=== PATIENT | male | born 1965 | race Caucasian/White ===

== ENCOUNTER 2017-04-15 10:23 | Emergency (ER) | payer BC ==
[~2017-04-15] VITALS: Ht 175.3 cm; Wt 83.2 kg
[2017-04-15 10:27] VITALS: BP 156/100; PULSE 78; RESP 17; TEMP 97.3; O2SAT 100
[2017-04-15] MEDS ORDERED: LISI20TA PO (10:41)
[2017-04-15] MEDS ORDERED: MORPHINE SULFATE 2 MG/ML INJ IV PUSH ONE (11:00)
[2017-04-15] MEDS ORDERED: SODIUM CHLOR 0.9% 1000 ML INJ 1,000 ML IV ONE ×2 (11:00→12:00)
[2017-04-15] MEDS ORDERED: KETOROLAC TROMETHAMINE 30 MG/ML (IVP) VIAL IV PUSH ONE (11:00)
[2017-04-15] MEDS ORDERED: ONDANSETRON HCL 4 MG/2 ML VIAL IV PUSH ONE (11:00)
--- NOTE | 2017-04-15 11:01 | PD ---
HPI Chief Complaint: Flank/Kidney Pain Time Seen by Provider: 10:58 Travel History International Travel<30 days: No Contact w/Intl Traveler<30days: No Traveled to known affect area: No History of Present Illness HPI This is a 51-year-old male who presents to the emergency department with a history of kidney stones with onset of right-sided flank pain that started this morning, constant, severe that radiates into his right groin associated with multiple episodes of vomiting. He denies any fevers or chills. He is having difficulty urinating. He says this feels just like kidney stones he has had in the past. He says he has had 3 kidney stones since 2008. PFSH Past Medical History Cardiovascular Problems: Yes (HTN) Hypertension: Yes Past Surgical History Surgical History: No Previous Surgery Social History Alcohol Use: No Tobacco Use: No Substance Use: No Allergies-Medications (Allergen,Severity, Reaction): Coded Allergies: No Known Allergies (Unverified , 04/15/17) Reported Meds & Prescriptions Reported Meds & Active Scripts Active Reported Lisinopril-Hctz 20-12.5 Mg Tab 1 Tab PO DAILY Review of Systems Except as stated in HPI: all other systems reviewed are Neg Physical Exam Narrative GENERAL:Well appearing, no acute distress SKIN: Focused skin assessment warm and dry. HEAD: Atraumatic. Normocephalic. EYES: Pupils equal and round. No injection or drainage. ENT: Moist mucous membranes NECK: Trachea midline. CARDIOVASCULAR: Regular rate and rhythm. No murmur appreciated. RESPIRATORY: Clear to auscultation. Breath sounds equal bilaterally. GASTROINTESTINAL: Abdomen soft, tender to palpation in the right lower quadrant with no rebound or guarding. : Right CVA tenderness MUSCULOSKELETAL: No obvious deformities. NEUROLOGICAL: Awake and alert. No obvious cranial nerve deficits. Moving all extremities PSYCHIATRIC: Appropriate mood and affect; insight and judgment normal. Data Data Last Documented VS Vital Signs Date Time Temp Pulse Resp B/P (MAP) Pulse Ox O2 Delivery O2 Flow Rate FiO2 04/15/17 10:27 97.3 78 17 156/100 (118) 100 Orders Orders Complete Blood Count With Diff (04/15/17 10:58) Basic Metabolic Panel (Bmp) (04/15/17 10:58) Urinalysis - C+S If Indicated (04/15/17 10:58) Ketorolac Inj (Toradol Inj) (04/15/17 11:00) Morphine Inj (Morphine Inj) (04/15/17 11:00) Ondansetron Inj (Zofran Inj) (04/15/17 11:00) Sodium Chlor 0.9% 1000 Ml Inj (Ns 1000 M (04/15/17 11:00) Sodium Chlor 0.9% 1000 Ml Inj (Ns 1000 M (04/15/17 12:00) Labs Laboratory Tests Test 04/15/17 11:09 White Blood Count 12.5 TH/MM3 Red Blood Count 4.22 MIL/MM3 Hemoglobin 12.7 GM/DL Hematocrit 38.5 % Mean Corpuscular Volume 91.1 FL Mean Corpuscular Hemoglobin 30.1 PG Mean Corpuscular Hemoglobin Concent 33.0 % Red Cell Distribution Width 11.1 % Platelet Count 335 TH/MM3 Mean Platelet Volume 8.9 FL Neutrophils (%) (Auto) 89.8 % Lymphocytes (%) (Auto) 6.9 % Monocytes (%) (Auto) 3.0 % Eosinophils (%) (Auto) 0.1 % Basophils (%) (Auto) 0.2 % Neutrophils # (Auto) 11.2 TH/MM3 Lymphocytes # (Auto) 0.9 TH/MM3 Monocytes # (Auto) 0.4 TH/MM3 Eosinophils # (Auto) 0.0 TH/MM3 Basophils # (Auto) 0.0 TH/MM3 CBC Comment DIFF FINAL Differential Comment Urine Collection Type CLEAN CATCH Urine Color YELLOW Urine Turbidity CLEAR Urine pH 8.0 Urine Specific [place] 1.026 Urine Protein 30 mg/dL Urine Glucose (UA) NEG mg/dL Urine Ketones 15 mg/dL Urine Occult Blood LARGE Urine Nitrite NEG Urine Bilirubin NEG Urine Leukocyte Esterase NEG Urine RBC 50-99 /hpf Urine WBC 0-2 /hpf Urine Squamous Epithelial Cells 0-5 /hpf Microscopic Urinalysis Comment CULT NOT INDICATED Urine Collection Time 11:09 Blood Urea Nitrogen 21 MG/DL Creatinine 1.80 MG/DL Random Glucose 150 MG/DL Calcium Level 9.0 MG/DL Sodium Level 138 MEQ/L Potassium Level 3.5 MEQ/L Chloride Level 104 MEQ/L Carbon Dioxide Level 25.4 MEQ/L Anion Gap 9 MEQ/L Estimat Glomerular Filtration Rate 40 ML/MIN MDM Medical Decision Making Medical Screen Exam Complete: Yes Emergency Medical Condition: Yes Interpretation(s) afebrile, no tachycardia, hypertensive mild leukocytosis mild anemia renal insufficiency urinalysis: red blood cells with no evidence of infection. Differential Diagnosis Nephrolithiasis, pyelonephritis, urinary tract infection, dehydration Narrative Course This is a 51-year-old male who presents to the emergency department with signs and symptoms classic for kidney stone. He was placed on a monitor and an IV was established. Labs demonstrates a mild renal insufficiency as well as blood in his urine and some ketones. He was given 2 L of IV fluid. He was given pain control and he feels much better on reassessment. I asked him to have his blood work redrawn by his primary care physician in 1-2 weeks to ensure his kidney function is improving. Otherwise his pain is better controlled and I think is appropriate for outpatient therapy. I do not think CT imaging is warranted as he has had 3 stones that have been visualized in the past that have passed without intervention. Diagnosis Primary Impression: Nephrolithiasis Patient Instructions: General Instructions Additional Instructions: If you develop severe pain, inability to eat or drink, or fever return to the emergency department. Use a strainer to try to catch your stone. Take Lortab as needed for pain, and continue taking zofran as needed for nausea. Complete your course of tamsulosin. Your kidney function was slightly abnormal today. Be sure this is rechecked by your primary care physician in 1-2 weeks. Y Med/Other Pt SpecificInfo: Prescription(s) given Scripts Ondansetron Odt (Zofran Odt) 4 Mg Tab 4 MG SL Q6HR Y for Nausea/Vomiting, #12 TAB 0 Refills Prov: Melonie Car MD 04/15/17 Tamsulosin (Flomax) 0.4 Mg Cap 0.4 MG PO HS for Manage Prostate Problems for 5 Days, #5 CAP 0 Refills Prov: Melonie Car MD 04/15/17 Hydrocodone/Acetaminophen (Hydrocodone-Acetamin 5-325 mg) 5 Mg-325 Mg Tablet 1-2 TAB PO Q6HR Y for PAIN SCALE 5 TO 10, #12 Prov: Melonie Car MD 04/15/17 Disposition: 01 DISCHARGE HOME Condition: Stable Melonie Car MD Apr 15, 2017 11:01
[2017-04-15 11:17] LABS: AUTOMATED NEUTROPHIL # 11.2 TH/MM3 (1.8-7.7); BASOPHIL % 0.2 % (0.0-2.0); EOSINOPHIL % 0.1 % (0.0-4.0); HEMATOCRIT 38.5 % (39.0-51.0); HEMOGLOBIN 12.7 GM/DL (13.0-17.0); LYMPH % 6.9 % (9.0-44.0); LYMPHOCYTE # 0.9 TH/MM3 (1.0-4.8); MEAN CELL VOLUME 91.1 FL (80.0-100.0); MEAN CORPUSCULAR HEMOGLOBIN 30.1 PG (27.0-34.0); MEAN PLATELET VOLUME 8.9 FL (7.0-11.0); MONOCYTE # 0.4 TH/MM3 (0-0.9); NEUT % 89.8 % (16.0-70.0); PLATELET COUNT 335 TH/MM3 (150-450); RED BLOOD COUNT 4.22 MIL/MM3 (4.50-5.90); RED CELL DISTRIBUTION WIDTH 11.1 % (11.6-17.2); WHITE BLOOD COUNT 12.5 TH/MM3 (4.0-11.0)
[2017-04-15 11:18] LABS: BILIRUBIN, URINE NEG (NEG); BLOOD, URINE LARGE (NEG); GLUCOSE,URINE NEG (NEG); KETONE, URINE 15 mg/dL (NEG); NITRITE,URINE NEG (NEG); URINE LEUKOCYTE ESTERASE NEG (NEG)
[2017-04-15 11:24] LABS: URINE COLOR YELLOW (YELLW/STRAW); WBC, URINE 0-2 /hpf (0-5)
[2017-04-15 11:25] LABS: SQUAMOUS EPITHELIAL CELL URINE 0-5 /hpf (0-5)
[2017-04-15 11:28] LABS: BICARBONATE 25.4 MEQ/L (21.0-32.0)
[2017-04-15 11:31] LABS: CREATININE 1.8 MG/DL (0.60-1.30)
[2017-04-15] MEDS ORDERED: ZOFR4TAB3 SL (12:30)
[2017-04-15] MEDS ORDERED: TAMS5CAP PO (12:30)
[2017-04-15] MEDS ORDERED: HYDR-3516 PO (12:30)
[2017-04-15 12:54] VITALS: BP 143/95; PULSE 91; RESP 16; O2SAT 97
== END 2017-04-15 12:57 | disposition home or self-care (01) ==
LOC: PHED 10:23
DX: N20.0 Calculus of kidney (principal); N28.9 Disorder of kidney and ureter, unspecified; R11.10 Vomiting, unspecified; I10 Essential (primary) hypertension; Z87.442 Personal history of urinary calculi
CPT/HCPCS: 80048; 81001; 85025; 96361; 96374; 96375; 99284; J1885; J2270; J2405; J7030